=== PATIENT | female | born 1950 | race Caucasian/White ===

== ENCOUNTER 2018-08-17 15:48 | Emergency (ER) | payer MEDICARE ==
[~2018-08-17] VITALS: Ht 157.5 cm; Wt 75.0 kg
[2018-08-17 15:51] VITALS: Ht 157.5 cm; Wt 75.0 kg
[2018-08-17] MEDS ORDERED: PRINIVIL20 MG PO (15:53)
[2018-08-17] MEDS ORDERED: TORADOL10 MG PO (17:25)
[2018-08-17 17:50] VITALS: BP 130/74
== END 2018-08-17 17:50 | disposition home or self-care (01) ==
LOC: D.ER 15:48
DX: S70.02XA Contusion of left hip, initial encounter (principal); S90.02XA Contusion of left ankle, initial encounter; S80.02XA Contusion of left knee, initial encounter; W01.0XXA Fall on same level from slipping, tripping and stumbling without subsequent striking against object, initial encounter; Y93.89 Activity, other specified; Y92.512 Supermarket, store or market as the place of occurrence of the external cause

== ENCOUNTER 2020-08-04 17:31 | Emergency (ER) | payer MEDICARE ==
[~2020-08-04] VITALS: Ht 157.5 cm; Wt 71.8 kg
[~2020-08-04 17:31] MED LIST: PRINIVIL20 MG PO; TORADOL10 MG PO
[2020-08-04 17:35] VITALS: Ht 157.5 cm; Wt 71.8 kg
[2020-08-04] MEDS ORDERED: HYDROCODON-ACE1 EAC7 PO (18:53)
[2020-08-04 19:24] VITALS: BP 129/84
== END 2020-08-04 19:24 | disposition home or self-care (01) ==
LOC: D.ER 17:31
DX: T23.201A Burn of second degree of right hand, unspecified site, initial encounter (principal); X12.XXXA Contact with other hot fluids, initial encounter; Y93.9 Activity, unspecified; Y92.9 Unspecified place or not applicable